=== PATIENT | male | born 1950 | race Caucasian/White ===

== ENCOUNTER 2021-11-21 08:26 | Emergency (ER) | payer MEDICARE, SELFPAY ==
[2021-11-21] VITALS (8 sets, daily range): BP systolic 108–132; BP diastolic 61–93; PULSE 50–120; RESP 20; TEMP 36.6–37.1; O2SAT 97–99
--- NOTE | ~2021-11-21 | XR_ITS ---
EXAMINATION: XR chest 1V portable DATE: 11/21/2021 09:33 INDICATION: Pedal edema. TECHNIQUE: A single frontal view of the chest was obtained. COMPARISON: None. FINDINGS: There is no pneumonia, pleural effusion, or pneumothorax. Cardiomegaly is noted. Median samina rnotomy wires and mediastinal surgical clips are seen, likely from prior coronary artery bypass graft ing. There are old healed left rib fractures. IMPRESSION: 1. Cardiomegaly. Reviewed, dictated and finalized at location A. IMPRESSION: 1. Cardiomegaly.
--- NOTE | ~2021-11-21 | US_ITS ---
EXAMINATION:US venous doppler LE BI INDICATION:Bilateral leg edema TECHNIQUE: Multiple grayscale, color flow and Doppler images of the right and left lower extremity de ep venous systems were obtained and reviewed. COMPARISON:No prior studies for comparison. FINDINGS: The common femoral, superficial femoral and popliteal veins demonstrate normal respiratory variation, augmentation and compressibility. Color flow is also seen within the posterior tibial, pe roneal, greater saphenous and profunda veins. IMPRESSION: 1: No lower extremity deep venous thrombosis. Reviewed, dictated and finalized at location A.
--- NOTE | 2021-11-21 08:42 | ED.GENADULT ---
HPI - General Adult General Chief complaint: Asthma Stated complaint: AMBULANCE History of Present Illness HPI narrative: The patient is a 71-year-old male with multiple comorbidities who has not received any medications for the last 2 months for any of his medical conditions. He does have hypertension, asthma, hyperlipidemia, coronary artery disease, status post coronary artery bypass grafting and aortic valve replacement (2017), status post coronary artery stenting, status post right carotid artery stenting, persistent atrial fibrillation. Vaccinated against COVID-19, 2 of 2 doses, no booster. He had been on albuterol, Dyazide, Xanax as needed, Toprol-XL, lisinopril, Advair twice daily, Lipitor, and aspirin as well as Eliquis. He has been off all his medications for the last 2 months since moving to this area. He last saw his physicians in [place] ([facility]) several months ago. He is brought in by EMS after falling at home. He also did fall 2 days ago. EMS noted that the house is not filthy. The patient was soaked in stool and his clothes were very crusty and smelly, and had not been washed for some time. He has not showered in 10 days per his report. He does have running water where he lives. His uses a cane. He moved to this area 2 months ago. The patient had complaints of mild dyspnea. EMS administered an albuterol treatment. He feels better now and back to normal. No chest pain or dyspnea. No rhinorrhea or nasal congestion. No fevers or chills or diaphoresis. No abdominal pain or nausea vomiting. He does have significant pedal edema up to the knees bilaterally which has been ongoing for several months, especially since he has been off his diuretic medications. No motor or sensory deficits. He has no pain after falling at home. No pain in the neck or back. No pain in the upper lower extremities. No abrasions or bruising. Related Data Home Medications Medication Instructions Recorded Confirmed albuterol sulfate 90 mcg/actuation 2 puff inhalation DIRECTED PRN 11/21/21 11/21/21 aerosol inhaler Shortness Of Breath Or Wheezing alprazolam 0.5 mg tablet 0.5 mg PO DIRECTED PRN Anxiety 11/21/21 11/21/21 apixaban 5 mg tablet (Eliquis) 5 mg PO BID 11/21/21 11/21/21 aspirin 81 mg capsule 81 mg PO DAILY 11/21/21 11/21/21 atorvastatin 20 mg tablet 80 mg PO DAILY 11/21/21 11/21/21 fluticasone propionate 115 1 inh inhalation DAILY 11/21/21 11/21/21 mcg-salmeterol 21 mcg/actuation HFA inhaler (Advair HFA) lisinopril 5 mg tablet 5 mg PO DAILY 11/21/21 11/21/21 metoprolol succinate 25 mg 50 mg PO BID 11/21/21 11/21/21 tablet,extended release 24 hr triamterene 37.5 1 cap PO DAILY 11/21/21 11/21/21 mg-hydrochlorothiazide 25 mg capsule Allergies Allergy/AdvReac Type Severity Reaction Status Date / Time No Known Allergies Allergy Verified 11/21/21 09:21 Most Recent Cardiac Tests: Chest X-Ray 11/21/21 Review of Systems Review of Systems: All systems reviewed & are unremarkable except as noted in HPI and below Constitutional: Constitutional: Reports no additional constitutional complaints, Denies anorexia, Denies body ache(s), Denies chills, Denies excessive sweating, Denies fatigue, Denies fever(s), Reports frequent falls, Denies headache(s), Denies malaise and Denies poor appetite Eyes: Eyes: Reports no additional eye complaints, Denies blurry vision, Denies change in vision, Denies irritation, Denies itchy eyes and Denies photophobia ENT: Reports system reviewed and no additional complaints, except as documented, Reports Normal hearing present, Denies change in voice, Denies dysphagia, Denies vertigo, Denies dizziness, Denies ear discharge, Denies headache(s), Denies hearing loss, Denies hoarseness, Denies nasal congestion, Denies neck pain, Denies sinus pressure, Denies sore throat and Denies throat swelling Cardiovascular: Cardiovascular: Reports no additional cardiovascular complaints, Denie
--- NOTE | 2021-11-21 09:04 | ECG_ITS ---
Measurements Intervals [place] Rate: 118 P: 226 AL: 140 QRS: 155 QRSD: 152 T: 5 QT: 362 QTc: 507 Interpretive Statements SINUS TACHYCARDIA RIGHT BUNDLE BRANCH BLOCK LEFT POSTERIOR FASCICULAR BLOCK ABNORMAL ECG NO PREVIOUS ECG AVAILABLE FOR COMPARISON Electronically Signed On 11-21-2021 15:52:38 CDT by Yamil Baez M.D.
[2021-11-21 09:37] LABS: Basophils Absolute Auto 0.03 K/mm3 (0.00-0.10); Basophils Percent Auto 0.5 % (0.0-1.0); Eosinophils Absolute Auto 0.13 K/mm3 (0.02-0.50); Hematocrit 49.2 % (37.0-46.0); Hemoglobin 15.5 g/dL (12.4-15.3); Immature Granulocyte Absolute 0.01 K/mm3 (0.00-0.00); Immature Granulocyte Percent A 0.2 % (0.0-0.0); Lymphocytes Absolute Auto 0.72 K/mm3 (1.10-4.50); Mean Corpuscular HGB Conc 31.5 g/dL (32.0-36.0); Mean Corpuscular Hemoglobin 30.3 pg (27.0-31.0); Mean Corpuscular Volume 96.3 fL (78.0-102.0); Mean Platelet Volume 12.8 fl (8.7-11.0); Monocytes Absolute Auto 0.53 K/mm3 (0.10-0.90); Monocytes Percent Auto 8.1 % (2.0-11.0); Neutrophils Absolute Auto 5.2 K/mm3 (1.7-7.2); Neutrophils Percent Auto 78.2 % (50.0-70.0); Platelet Count Result 139 K/mm3 (150-420); Red Blood Count 5.11 M/mm3 (4.70-6.10); Red Cell Distribution Width 13.6 % (11.6-14.4); White Blood Count 6.6 K/mm3 (4.8-10.8)
[2021-11-21 09:39] LABS: Add Urine Microscopic? YES; Appearance Urine Slightly Cloudy (Clear); Bilirubin Urine 1+ (Negative); Blood Urine Negative (Negative); Color Urine Dark Yellow (Yellow); Glucose Urine UA Negative (Negative); Ketones Urine Negative (Negative); Leukocyte Esterase Ur Negative LEU/UL (Negative); Nitrate Urine Negative (Negative); Protein Urine 2+ (Negative); Specific Grav Ur >= 1.030 (1.010-1.020)
[2021-11-21 09:44] LABS: Bacteria Urine Trace /hpf; RBC Urine 0-2 /hpf (0-2); Squamous Epithelial Cell Urine Rare /hpf (Few); WBC Urine 0-3 /hpf (0-3)
[2021-11-21] MEDS: METOPROLOL TARTRATE INJ 5 MG/5 ML VIAL IV PUSH (09:51)
[2021-11-21 09:53] LABS: INR 1.1; Partial Thromboplastin Time 26.9 SEC (23.90-30.70); Prothrombin Time 11.7 Seconds (9.50-12.10)
[2021-11-21] MEDS: FUROSEMIDE INJ 100 MG/10 ML VIAL 80 MG IV PUSH (09:54)
[2021-11-21] MEDS: MAGNESIUM SULF 2 GM/WATER 50ML 2 GM/50 ML BAG IVPB (09:54)
[2021-11-21 09:57] LABS: Lactic Acid Reflex 1.5 mmol/L (0.4-2.0)
[2021-11-21 09:59] LABS: Alanine Aminotransferase 50 U/L (16-63); Albumin Level 3.2 g/dL (3.4-5.0); Alkaline Phosphatase 148 U/L (46-116); Anion Gap 9 mmol/L (8-16); Aspartate Amino Transferase 37 U/L (15-37); Bilirubin,Total 0.8 mg/dL (0.00-1.00); Blood Urea Nitrogen 32 mg/dL (7-18); Calcium 8.9 mg/dL (8.5-10.1); Carbon Dioxide 27 mmol/L (21-32); Chloride 107 mmol/L (98-108); Estimated Glomerular Filt Rate 46; Ethanol < 3 mg/dL (0-6); Glucose 111 mg/dL (70-99); NT Pro B Type Natriuretic Pept 13653 pg/mL (0-125); Osmolality Calculated 303 mOsm/kg (285-295); Potassium 4.1 mmol/L (3.5-5.1); Sodium 143 mmol/L (136-145); Total Protein 6.4 g/dL (6.4-8.2)
[2021-11-21 10:10] LABS: Amphetamine Screen Urine Negative (Negative); Barbiturate Screen Urine Negative (Negative); Benzodiazepines Screen Urine Negative (Negative); Cannabinoid Screen Urine Negative (Negative); Cocaine Screen Urine Negative (Negative); Methadone Screen Urine Negative (Negative); Opiate Screen Urine Negative (Negative); Phencyclidine Screen Urine Negative (Negative)
[2021-11-21 10:14] LABS: Magnesium 1.9 mg/dL (1.8-2.4); Troponin I 141.7 ng/L (0.00-60.4)
[2021-11-21 10:39] LABS: Erythrocyte Sedimentation Rate 3 mm/hr (0-20)
[2021-11-21] MEDS: POTASSIUM BICARBONATE 25 MEQ TABEF PO (10:47)
[2021-11-21] MEDS: dilTIAZem 100 MG/100 ML 100 MG/100 ML BAG 10 MG IV CONT (10:48)
[2021-11-21] MEDS: ENOXAPARIN 100 MG/ML SYRINGE SUB-Q (10:48)
[2021-11-21] MEDS: dilTIAZem HCl INJ 25 MG/5 ML VIAL 10 MG IV PUSH (10:48)
[2021-11-21 11:12] LABS: SARS-CoV-2 RNA PCR Negative (Negative)
--- NOTE | 2021-11-21 11:40 | ECG_ITS ---
Measurements Intervals [place] Rate: 38 P: [place]: 0 QRS: 116 QRSD: 167 T: 178 QT: 489 QTc: 393 Interpretive Statements ATRIAL FLUTTER WITH SLOW VENTRICULAR RESPONSE RIGHT AXIS DEVIATION RIGHT BUNDLE BRANCH BLOCK MARKED T-WAVE ABNORMALITY, CONSIDER ANTEROLATERAL ISCHEMIA MODERATE T-WAVE ABNORMALITY, CONSIDER INFERIOR ISCHEMIA ABNORMAL ECG COMPARED TO ECG 11/21/2021 09:16:46 ATRIAL FLUTTER NOW PRESENT AND ANTEROLATERAL ST ABNORMALITIES MORE PRONOUNCED Electronically Signed On 11-21-2021 15:53:27 CDT by Yamil Baez M.D.
--- NOTE | 2021-11-21 12:51 | PC.NURSE ---
Parks Worker at [facility] called with bed update. Pt to be admitted to IMU [address] Rodriguez [phone] - Call for report
--- NOTE | 2021-11-21 13:33 | PC.NURSE ---
update to cb mo.
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
== END 2021-11-21 14:05 | disposition short-term general hospital (02) ==
PROVIDERS: Emergency Provider Emergency Medicine
DX: I48.92 Unspecified atrial flutter (principal); I21.4 Non-ST elevation (NSTEMI) myocardial infarction; R60.9 Edema, unspecified; I50.9 Heart failure, unspecified; Z91.81 History of falling; Z91.14 Patient's other noncompliance with medication regimen; R79.1 Abnormal coagulation profile; I10 Essential (primary) hypertension; E78.5 Hyperlipidemia, unspecified; I25.10 Atherosclerotic heart disease of native coronary artery without angina pectoris; Z20.822 Contact with and (suspected) exposure to COVID-19; Z79.899 Other long term (current) drug therapy
CPT/HCPCS: 36415; 71045; 80053; 80307; 81001; 83605; 83735; 83880; 84484; 85025; 85380; 85610; 85652; 85730; 86140; 87040; 93005; 93970; 96365; 96366; 96367; 96372; 96375; 99285; A9270; C9803; J1650; J1940; J3475; U0003; U0005

== ENCOUNTER 2021-11-21 14:51 | Inpatient (IN) | payer MEDICARE, SELFPAY ==
--- NOTE | 2021-11-21 | ECHO_ITS ---
Patient Info Name: Ti Yuen Age: 71 years : 1950 Gender: Male Ht: 74 in Wt: 237 lbs BSA: 2.39 m2 HR: 118 bpm BP: 126 / 74 mmHg Heart Rhythm: Atrial Flutter Technical Quality: Good Exam Date: 11/21/2021 4:29 PM Exam Location: [facility] Card Pulmonary Patient Status: Inpatient Admit Date: 11/21/2021 Staff Ordering Physician: Lisha Ram Director Of Nuclear Medicine: Stacy Moulton RDCS Attending Provider: Tatum Rodriguez DO Referring Physician: Leanna STONE; Exam Type: CA echo doppler color flow Study Info Indications I50.9 - Heart failure, unspecified Complete two-dimensional, color flow and Doppler transthoracic echocardiogram is performed with contrast to opacify the left ventricle and to improve the deliniation of the left ventricle endocardial borders. Summary 1. Four-chamber cardiac dilation. 2. Severe left ventricular systolic dysfunction. 3. Normal appearing and normally functioning aortic valve bioprosthesis. 4. Small amount of MR resulting from annular dilation. Left Ventricle Left ventricular chamber dimension is moderately enlarged. Left ventricular systolic function is severely reduced, estimated at 20-25%. The left ventricular diastolic function is indeterminate. Right Ventricle Right ventricular chamber dimension is moderately enlarged. Left Atria Left atrial chamber dimension is moderately enlarged. Right Atria Right atrial chamber dimension is moderately enlarged. Aortic Valve There is no bioprosthetic aortic valve stenosis. Pulmonic Valve The pulmonic valve is normal. There is trace pulmonic regurgitation. Mitral Valve The mitral valve has normal leaflets. There is mild mitral valve regurgitation. Tricuspid Valve The tricuspid valve leaflets are normal. There is mild tricuspid valve regurgitation. Pericardium/Pleural The pericardium appears normal. Aorta The aortic root size at the sinus of Valsalva is normal. Left Ventricular Outflow Tract Name Value Normal LVOT 2D LVOT Diameter 2.1 cm LVOT Doppler LVOT Peak Gradient 3 mmHg LVOT Mean Gradient 2 mmHg LVOT VTI 10 cm LVOT VTI/AV VTI Ratio 0.4 LVOT Stroke Volume 33 ml LVOT CO 11.5 l/min LVOT CI 4.8 l/min/m2 Pulmonic Valve Name Value Normal PV Doppler PV Peak Gradient 2 mmHg Mitral Valve Name Value Normal MV Doppler MV Decel [place] 489 cm/s2
--- NOTE | ~2021-11-21 | CT_ITS ---
EXAMINATION: CTA chest PE protocol DATE: 11/21/2021 17:36 INDICATION: Dyspnea. Elevated d-dimer. TECHNIQUE: Computed tomography (CT) pulmonary angiogram of the chest was performed with 100 mL Omnipa que-350 intravenous contrast. Additional 3D reconstructions utilizing coronal maximum intensity proje ction (MIP) were performed. Automated exposure control and iterative reconstruction technique were em ployed. The dose-length product was 568.70 mGy-cm. COMPARISON: None FINDINGS: Excellent contrast opacification of the pulmonary arteries. There is mild streak artifact from dense contrast in the superior vena cava and right atrium. Mild to moderate scattered respiratory motion ar tifact. Pelvis decreases sensitivity in the segmental and subsegmental pulmonary arteries at the lowe r lung zones and some of the smaller subsegmental pulmonary arteries in the mid to upper lung zones. No pulmonary embolism. Small right pleural effusion. Discoid atelectasis at the lingula. No pneumonia , pulmonary edema or left pleural effusion. Moderate cardiomegaly. Atherosclerotic coronary artery os sifications. Median sternotomy wires and aortic valve repair. Additional likely surgical clips along the heart suggesting coronary artery bypass grafting. Prominent right atrial enlargement and reflux o f contrast into the inferior vena cava and hepatic veins consistent with tricuspid regurgitation. No pericardial effusion. Thoracic aorta is normal in caliber. No pathologically enlarged thoracic lympha denopathy. Small amount of perihepatic and perisplenic ascites in the upper abdomen. Mild thoracic sp ondylosis. IMPRESSION: 1. No pulmonary embolism identified although evaluation is limited in the subsegmental basilar segmen yuliana pulmonary arteries due to primarily to respiratory motion. 2. Small right pleural effusion. 3. Moderate cardiomegaly including prominent right atrial enlargement suggesting tricuspid regurgitat ion. 4. Small amount of ascites in the upper abdomen. Reviewed, dictated and finalized at location A. IMPRESSION: 1. No pulmonary embolism identified although evaluation is limited in the subse gmental basilar segmental pulmonary arteries due to primarily to respiratory mo tion. 2. Small right pleural effusion. 3. Moderate cardiomegaly including prominent right atrial enlargement suggestin g tricuspid regurgitation. 4. Small amount of ascites in the upper abdomen.
--- NOTE | 2021-11-21 14:51 | ADMGEN ---
This patient, Ti Yuen, was admitted to IMU Room 211-01. Patient/family oriented to hospital policies and general routines including ID bracelet, bed and alarms, visiting hours, pain management, procedures, bathroom and other care routines, personal items, smoking policy, room service/diet, and visiting hours. Information on how to activate the Rapid Response Team has been discussed. Patient/Family are encouraged to report perceived risks to care and to ask questions if they do not understand what they are told or what they should do.
[2021-11-21 15:00] VITALS: BP 126/74; PULSE 93; RESP 20; TEMP 36.2; O2SAT 100; BMI 30.4
--- NOTE | 2021-11-21 15:51 | PM.IMHP ---
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 These medications include his Eliquis, Xanax, Toprol-XL, Albuterol, dyazide, lisinopril, advair, lipitor and ASA. He is newly moved to [place] from [place] and reports that he last saw his PCP there a few months back. In addition, the pt. states that after moving to [place], his SSI checks continued to go to his bank in [place], so he could not afford to buy his medications. He has no means of transportation and states he moved here under the pretense that his son was going to help him get around and drive him around and help him get set up with a physician here and hasn't done so. As a result, he walks everywhere and he endorses that in order to get to the dollar store he has to walk across a large field and stumbles and falls frequently. Today he fell going down some stairs and landed on his knees, but he could not get up in his apartment which prompted his to call 911. Upon entry into the home, the Paramedics reportedly found him covered in dried stool, in very dirty clothes and living conditions. The pt. admitted that he had not bathed in 10 days, although that is unclear why. He reports he does have running water and soap. He was found to have an elevated Heart rate and was wheezing. After nebulizer treatment, he was improved. At the ER he was found to be in Atrial Fibrillation with RVR in the 120s, and his workup at [facility] was also significant for an elevated troponin and dimer. However, a CTA was not performed at [facility] as it appeared he may have an MITA with Cr of 1.49 and BUN of 32. But the pt's GFR is 46. He can have contrast at this GFR. The pt. was administered Lasix and Magnesium at the ER and transferred here in light of his elevated trop. At the time of my exam, the pt denies any CP, dyspnea at rest, N/V/D/urinary complaints, headache, dizziness, or lightheadedness. No abdominal pain. He reports that he has occasional NAVA as he is walking across the field to the store. He has also noted that his legs have been swelling as of recent. He lives in an apartment with his , does not drive as he does not have a car and does not currently have financial means for his medications. No cardiac history is in our EMR for this patient, so ECHO is ordered. We will trend troponin's and restart home meds. We will obtain Cardiology consult, and do CTA of chest. [id number]: 4 Review of Systems Review of Systems: All systems reviewed & are unremarkable except as noted in HPI and below PMFSH Past Medical History Medical History Asthma Atrial fibrillation CAD (coronary artery disease) Carotid artery stenosis Frequent falls Heart failure Hyperlipidemia Hypertension Myocardial infarction Traumatic amputation of multiple toes Surgical History Surgical History Aortic valve replaced Hx of CABG Family History Family History Sibling Myocardial infarct Sibling Myocardial infarct Mother Liver failure Father Emphysema lung Social History Social History Smoking status: Never smoker Alcohol intake: current Drinks per week: 1 Substance use: never Spiritual care concerns: No Meds Home Medications and Allergies Home Medications Medication Instructions Recorded Confirmed Type albuterol sulfate 90 mcg/actuation 2 puff inhalation DIRECTED PRN
[2021-11-21 16:00] VITALS: BP 132/73; PULSE 118; PULSE 119; RESP 24; TEMP 36.1; O2SAT 100
--- NOTE | 2021-11-21 16:12 | ECG_ITS ---
Measurements Intervals [place] Rate: 118 P: WV: 0 QRS: 120 QRSD: 161 T: 0 QT: 386 QTc: 542 Interpretive Statements ATRIAL FLUTTER/TACHYCARDIA WITH RAPID VENTRICULAR RESPONSE INDETERMINATE AXIS RIGHT BUNDLE BRANCH BLOCK [120+ ms QRS DURATION, UPRIGHT V1, 40+ ms S IN I/aVL/V4/V5/V6] COMPARED TO ECG 11/21/2021 11:43:08 VENTRICULAR RESPONSE TO ATRIAL FLUTTER HAS ACCELERATE Electronically Signed On 11-21-2021 16:36:57 CDT by Nader Hayden M.D.
[2021-11-21 16:19] LABS: Basophils Percent Auto 0.6 % (0.2-1.2); Eosinophils Absolute Auto 0.1 K/mm3 (0-0.3); Eosinophils Percent Auto 1.2 % (0-4.4); Hematocrit 46.3 % (42.0-52.0); Hemoglobin 14.2 g/dL (14.0-18.0); Immature Granulocyte Absolute 0.02 K/mm3 (0.00-0.031); Immature Granulocyte Percent A 0.3 % (0-0.5); Lymphocytes Absolute Auto 0.66 K/mm3 (0.9-3.2); Lymphocytes Percent Auto 9.8 % (18.3-44.2); Mean Corpuscular HGB Conc 30.7 g/dl (32-36); Mean Corpuscular Hemoglobin 29.8 pg (26-34); Mean Corpuscular Volume 97.3 fl (80-100); Mean Platelet Volume 12.7 fl (7.4-10.4); Monocytes Absolute Auto 0.6 K/mm3 (0.1-0.6); Monocytes Percent Auto 8.7 % (2.6-8.5); Neutrophils Absolute Auto 5.4 K/mm3 (1.3-6.7); Neutrophils Percent Auto 79.4 % (45.5-73.1); Platelet Count Result 140 k/mm3 (150-375); Red Blood Count 4.76 M/mm3 (4.6-6.20); Red Cell Distribution Width 14.1 % (11.5-14.5); White Blood Count 6.8 K/mm3 (4.5-10.0)
[2021-11-21 16:32] LABS: Partial Thromboplastin Time 34.6 SECONDS (22.3-36.8)
[2021-11-21 16:33] LABS: INR 1.2; Prothrombin Time 14.7 Seconds (11.1-14.7)
[2021-11-21 16:37] LABS: Alanine Aminotransferase 36 U/L (6-50); Albumin Level 3.3 g/dL (3.5-5.1); Alkaline Phosphatase 127 U/L (38-126); Anion Gap 7 mmol/L (8-16); Aspartate Amino Transferase 36 U/L (17-59); Bilirubin,Total 0.7 mg/dL (0.2-1.3); Blood Urea Nitrogen 31 mg/dL (9-20); Calcium 8.7 mg/dL (8.4-10.2); Carbon Dioxide 28 mmol/L (22-30); Chloride 106 mmol/L (98-107); Estimated CRCL calculation 59 ml/min; Estimated Glomerular Filt Rate 54; Glucose 93 mg/dL (65-110); Magnesium 2.1 mg/dL (1.6-2.3); Potassium 3.8 mmol/L (3.4-5.0)
[2021-11-21 16:39] LABS: Sodium 141 mmol/L (137-145)
[2021-11-21 16:40] LABS: Troponin I 0.117 ng/mL (0.000-0.034)
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
[2021-11-21 18:57] VITALS: PULSE 117
[2021-11-21] MEDS: FUROSEMIDE INJ 40 MG/4 ML VIAL IV PUSH (18:57)
[2021-11-21] MEDS: METOPROLOL SUCCINATE EXT REL 50 MG TABCR PO (18:57)
[2021-11-21] MEDS: APIXABAN 5 MG TABLET PO (18:57)
[2021-11-21 19:54] LABS: Troponin I 0.122 ng/mL (0.000-0.034)
[2021-11-21 20:00] VITALS: BP 116/78; PULSE 118; RESP 22; TEMP 36.9; O2SAT 100
--- NOTE | 2021-11-21 20:03 | PC.NURSE ---
Patient arrived with cardizem gtt at 5 mLs/hr. Received orders to continue drip until PO metoprolol is given. PO metoprolol given at 185, cardizem dc'd at 1857 and patient saline locked at this time.
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
[2021-11-21 21:57] VITALS: PULSE 118
[2021-11-21] MEDS: dilTIAZem 100 MG/100 ML 100 MG/100 ML BAG IV CONT (21:57)
[2021-11-21 22:00] VITALS: PULSE 118
[2021-11-21 22:31] LABS: Troponin I 0.142 ng/mL (0.000-0.034)
[2021-11-22] VITALS (14 sets, daily range): BP systolic 97–120; BP diastolic 57–82; PULSE 82–117; RESP 18–22; TEMP 35.8–36.9; O2SAT 94–100
[2021-11-22 05:02] LABS: Basophils Percent Auto 0.6 % (0.2-1.2); Eosinophils Absolute Auto 0.2 K/mm3 (0-0.3); Hematocrit 44.5 % (42.0-52.0); Hemoglobin 13.8 g/dL (14.0-18.0); Immature Granulocyte Absolute 0.02 K/mm3 (0.00-0.031); Immature Granulocyte Percent A 0.4 % (0-0.5); Lymphocytes Absolute Auto 0.86 K/mm3 (0.9-3.2); Lymphocytes Percent Auto 15.9 % (18.3-44.2); Mean Corpuscular Hemoglobin 29.7 pg (26-34); Mean Corpuscular Volume 95.7 fl (80-100); Monocytes Absolute Auto 0.6 K/mm3 (0.1-0.6); Monocytes Percent Auto 10.7 % (2.6-8.5); Neutrophils Absolute Auto 3.8 K/mm3 (1.3-6.7); Neutrophils Percent Auto 69.4 % (45.5-73.1); Platelet Count Result 128 k/mm3 (150-375); Red Blood Count 4.65 M/mm3 (4.6-6.20); Red Cell Distribution Width 14.2 % (11.5-14.5); White Blood Count 5.4 K/mm3 (4.5-10.0)
[2021-11-22 05:19] LABS: Alanine Aminotransferase 33 U/L (6-50); Albumin Level 3.1 g/dL (3.5-5.1); Alkaline Phosphatase 112 U/L (38-126); Anion Gap 7 mmol/L (8-16); Aspartate Amino Transferase 33 U/L (17-59); Bilirubin,Total 0.7 mg/dL (0.2-1.3); Blood Urea Nitrogen 31 mg/dL (9-20); Calcium 8.1 mg/dL (8.4-10.2); Carbon Dioxide 30 mmol/L (22-30); Chloride 104 mmol/L (98-107); Estimated CRCL calculation 55 ml/min; Estimated Glomerular Filt Rate 50; Glucose 109 mg/dL (65-110); Potassium 3.8 mmol/L (3.4-5.0); Sodium 141 mmol/L (137-145)
--- NOTE | 2021-11-22 08:25 | PM.PNCARD ---
Progress Note: A&P Assessment and Plan (1) Ischemic cardiomyopathy: Code(s): I25.5 - Ischemic cardiomyopathy Status: Acute (2) Atrial flutter: Code(s): I48.92 - Unspecified atrial flutter Status: Acute (3) H/O aortic valve replacement: Code(s): Z95.2 - Presence of prosthetic heart valve Status: Acute Plan 71-year-old man with ischemic cardiomyopathy aortic valve replacement and atrial flutter of unknown chronicity. Previous records indicate AFib with RVR was present the last time his internists saw him also with chronic right bundle branch block. Echocardiogram done yesterday on the positive side demonstrates a very nicely functioning aortic valve bioprosthesis. On the negative side demonstrates very poor left ventricular systolic function. I will discontinue his IV diltiazem this morning. Advance his metoprolol to his previous dosage of 100 mg daily and transition him from lisinopril to Entresto. We should not have to wait for couple of days to start the Entresto since he has not had the lisinopril for about 2 months. He has not yet taken this morning's dose. Nader Hayden MD [facility] Subjective Date/time seen: Date of service: 11/22/21 08:25 Interval history: Follow-up visit in this 71-year-old man with: Ischemic heart disease with previous surgical revascularization as well as previous bioprosthetic aortic valve replacement. Patient admitted to the hospital with shortness of breath found to be in atrial flutter with RVR. Review of previous records indicates this may be his chronic rhythm. He has been noncompliant with medication and has not had any of his medication for at least a couple of months or so prior to coming in the hospital. This morning he feels well. Echocardiogram results reviewed with the patient. Exam Const: General: comfortable and no acute distress HENMT: Mouth: Yes moist mucous membranes Eyes: Sclera: sclerae normal Neck: Neck: supple and no JVD Resp: Effort & Inspection: normal respiratory effort Auscultation: clear to auscultation bilaterally Cardio: Rhythm: abnormal rhythm irregularly irregular Other: PMI laterally displaced GI: GI Palp: Yes Soft to palpation Auscultation: normal bowel sounds Skin: General skin exam: normal color Neuro: Other: Normal cognition Extrem: Other: Edema improved Objective Data Vital Signs Vital Signs: Vital Signs - 24 hr 11/21/21 15:00 11/21/21 16:00 11/21/21 16:00 Temperature 36.2 C L 36.1 C L Pulse Rate 93 119 H 118 H Respiratory Rate 20 24 H Blood Pressure 126/74 132/73 Pulse Oximetry 100 100 Oxygen Delivery 11/21/21 18:57 11/21/21 16:00 11/21/21 20:00 Temperature 36.9 C Pulse Rate 117 H 118 H Respiratory Rate 22 H Blood Pressure 116/78 Pulse Oximetry 100 Oxygen Delivery Room Air 11/21/21 20:00 11/21/21 20:00 11/21/21 21:57 Temperature Pulse Rate 118 H 118 H Respiratory Rate Blood Pressure Pulse Oximetry 100 Oxygen Delivery Room Air 11/21/21 22:00 11/22/21 00:00 11/22/21 00:00 Temperature 36.9 C Pulse Rate 118 H 117 H 117 H Respiratory Rate 18 Blood Pressure 110/80 Pulse Oximetry 100 Oxygen Delivery 11/22/21 00:00 11/22/21 02:00 11/22/21 04:00 Temperature 36.3 C L Pulse Rate 116 H 114 H Respiratory Rate 20 Blood Pressure 109/80 Pulse Oximetry 100 100 Oxygen Delivery Room Air 11/22/21 04:00 11/22/21 04:00 11/22/21 06:00 Temperature Pulse Rate 115 H 116 H Respiratory Rate Blood Pressure Pulse Oximetry 100 Oxygen Delivery Room Air 11/22/21 08:11 Temperature 36.0 C L Pulse Rate 116 H Respiratory Rate 20 Blood Pressure 111/75 Pulse Oximetry 98 Oxygen Delivery Intake/Output Intake/Output: Intake & Output 11/19/21 11/20/21 11/21/21 11/22/21 23:59 23:59 23:59 23:59 Intake Total 360 620 Output Total 525 1400 Balance -169 -859 Meds/Results Medications:
[2021-11-22] MEDS: ATORVASTATIN 40 MG TABLET 80 MG PO (09:25)
[2021-11-22] MEDS: METOPROLOL SUCCINATE EXT REL 50 MG TABCR PO ×2 (09:25→21:06)
[2021-11-22] MEDS: ASPIRIN 81 MG CHEWABLE TABLET PO (09:25)
[2021-11-22] MEDS: FUROSEMIDE INJ 40 MG/4 ML VIAL IV PUSH ×2 (09:25→17:48)
[2021-11-22] MEDS: TRIAMTERENE 37.5 MG/HCTZ 25 MG (MAXZIDE) TABLET 1 TAB PO (09:25)
[2021-11-22] MEDS: APIXABAN 5 MG TABLET PO ×2 (09:25→17:49)
[2021-11-22] MEDS: SACUBITRIL/VALSARTAN 24-26 MG TABLET 1 TAB PO ×2 (09:25→21:07)
[2021-11-22] MEDS: FLUTICASONE/SALMETEROL 115-21 MCG INHALER 1 PUFF INHALATION (10:20)
--- NOTE | 2021-11-22 13:16 | PM.IMPN ---
Progress Note: A&P Assessment and Plan (1) Atrial flutter with rapid ventricular response: Code(s): I48.92 - Unspecified atrial flutter Status: Inactive Assessment and Plan: - Cardizem discontinued and pt.s dose of Metoprolol has been increased to 100 mg op daily. - Cardiology consulted and changes were made to Metoprolol dose and Entresto was initiated. - Telemetry - Troponins have trended to flat. - heart Healthy diet (2) Congestive heart failure: Code(s): I50.9 - Heart failure, unspecified Status: Inactive Assessment and Plan: - No historical data in EMR. - BNP grossly elevated >13K, and matches respiratory and Physical exam. - ECHO performed and demonstrates severe LVSD with EF of 20-25% and indeterminate Diastolic function. - Telemetry continued - Continue Lasix 40 mg IVP BID - Accurate I&O - Daily weight, interval change is stable. It was 107.8 yesterday and is 107.4 today with diuresis. (3) Frequent falls: Code(s): R29.6 - Repeated falls Status: Inactive Assessment and Plan: - Fall precautions - PT and OT eval. (4) Noncompliance with medication regimen: Code(s): Z91.14 - Patient's other noncompliance with medication regimen Status: Inactive Assessment and Plan: - Care Coordination consulted for discharge planning and poor living conditions. - [facility] called Department of aging. (5) Clothing disheveled: Code(s): R46.89 - Other symptoms and signs involving appearance and behavior Status: Inactive Assessment and Plan: - See #4. (6) D-dimer, elevated: Code(s): R79.89 - Other specified abnormal findings of blood chemistry Status: Inactive Assessment and Plan: - CTA stat - Received Lovenox 1 mg/kg at [facility]. - Restarted on Eliquis here. (7) Elevated troponin: Code(s): R77.8 - Other specified abnormalities of plasma proteins Status: Acute Assessment and Plan: - Suspect demand ischemia from likely heart failure exacerbation. - Trend troponins - EKG's as needed Time Spent With Patient Time with patient: 15 - 25 minutes Subjective Date/time seen: 11/22/21 0910 This patient was examined at the bedside in interval assessment after being transferred to our facility for A-fib/flutter with RVR after not being able to take his medications for the past two months. He has been treated on a Diltiazem drip overnight and he has also been evaluated by Cardiology. Changes are being made to his medication regimen and he will be followed up by our Cardiology service as outpatient when he is stable. In addition his Metoprolol is advanced to 100 mg daily and his Lisinopril is transitioned to Entresto. He denies any CP, dyspnea, N/V/D, headache, lightheadedness or dizziness at this time. I have definite concerns about this patient and his compliance with therapy in the setting that he has no money, PCP, transportation available to him unless his son Ti is willing to help him out. I spoke personally with Ti on the phone and he is agreeable to helping his father with Transportation, with setting up of PCP appointment in [place] and also with obtaining his medications. Review of Systems Review of Systems: All systems reviewed & are unremarkable except as noted in HPI and below Exam Narrative: Very poorly kempt elderly male gentleman lying supine in bed at this time. He does not appear to be in any acute distress. Const: General: comfortable and no acute distress Other: Dirt noted under fingernails. HENMT: General nose exam: Normal nares present and no epistaxis Mouth: Yes moist mucous membranes Eyes: General: appearance normal, both eyes and all related structures Sclera: sclerae normal Pupils: Equal, round and reactive pupils present EOM: EOMs intact bilaterally Neck: Neck: supple and no JVD Thyroid: thyroid normal Lymphatic: lymphadenopathy not noted Chest: Other: Not tender
[2021-11-23] VITALS (11 sets, daily range): BP systolic 104–124; BP diastolic 68–90; PULSE 54–114; RESP 16–24; TEMP 36.1–36.4; O2SAT 95–100
--- NOTE | 2021-11-23 03:27 | PC.NURSE ---
This patient, Ti Yuen, was transferred to [facility] on 11/23/21 at 0327. Personal belongings sent with patient. Report given to Angélica LONGORIA. Appropriate documentation sent with patient.
--- NOTE | 2021-11-23 03:39 | PC.NURSE ---
Pt. received from IMU via bed at 0320. Pt. oriented to unit policies and procedures.
[2021-11-23 06:29] LABS: Basophils Absolute Auto 0.1 K/mm3 (0.0-0.1); Basophils Percent Auto 0.9 % (0.2-1.2); Eosinophils Absolute Auto 0.2 K/mm3 (0-0.3); Eosinophils Percent Auto 3.5 % (0-4.4); Hematocrit 46.4 % (42.0-52.0); Hemoglobin 14.4 g/dL (14.0-18.0); Immature Granulocyte Absolute 0.02 K/mm3 (0.00-0.031); Immature Granulocyte Percent A 0.4 % (0-0.5); Lymphocytes Absolute Auto 1.03 K/mm3 (0.9-3.2); Lymphocytes Percent Auto 18.8 % (18.3-44.2); Mean Corpuscular Hemoglobin 30.1 pg (26-34); Mean Corpuscular Volume 97.1 fl (80-100); Mean Platelet Volume 12.6 fl (7.4-10.4); Monocytes Absolute Auto 0.6 K/mm3 (0.1-0.6); Monocytes Percent Auto 10.8 % (2.6-8.5); Neutrophils Absolute Auto 3.6 K/mm3 (1.3-6.7); Neutrophils Percent Auto 65.6 % (45.5-73.1); Platelet Count Result 145 k/mm3 (150-375); Red Blood Count 4.78 M/mm3 (4.6-6.20); Red Cell Distribution Width 14.1 % (11.5-14.5); White Blood Count 5.5 K/mm3 (4.5-10.0)
[2021-11-23 06:41] LABS: Alanine Aminotransferase 34 U/L (6-50); Albumin Level 3.1 g/dL (3.5-5.1); Alkaline Phosphatase 126 U/L (38-126); Anion Gap 5 mmol/L (8-16); Aspartate Amino Transferase 33 U/L (17-59); Bilirubin,Total 0.6 mg/dL (0.2-1.3); Blood Urea Nitrogen 32 mg/dL (9-20); Calcium 8.4 mg/dL (8.4-10.2); Carbon Dioxide 32 mmol/L (22-30); Chloride 100 mmol/L (98-107); Estimated CRCL calculation 49 ml/min; Estimated Glomerular Filt Rate 50; Glucose 98 mg/dL (65-110); Magnesium 1.9 mg/dL (1.6-2.3); Potassium 3.8 mmol/L (3.4-5.0); Sodium 137 mmol/L (137-145)
[2021-11-23] MEDS: FLUTICASONE/SALMETEROL 115-21 MCG INHALER 1 PUFF INHALATION (09:27)
[2021-11-23] MEDS: SACUBITRIL/VALSARTAN 24-26 MG TABLET 1 TAB PO ×2 (09:37→20:32)
[2021-11-23] MEDS: METOPROLOL SUCCINATE EXT REL 50 MG TABCR PO ×2 (09:37→20:32)
--- NOTE | 2021-11-23 09:37 | PM.PNCARD ---
Progress Note: A&P Assessment and Plan (1) H/O aortic valve replacement: Code(s): Z95.2 - Presence of prosthetic heart valve Status: Acute (2) Atrial flutter: Code(s): I48.92 - Unspecified atrial flutter Status: Acute (3) Ischemic cardiomyopathy: Code(s): I25.5 - Ischemic cardiomyopathy Status: Acute Plan 71-year-old man with complex situation appears to have significant ischemic cardiomyopathy, normally functioning aortic valve bioprosthesis and likely chronic atrial flutter. He is on an appropriate medical regimen at this time. Because of his low ejection fraction I did transition him from lisinopril to Entresto. He has a reasonably controlled heart rate and of course is expected to be somewhat tachycardic because of his low ejection fraction. Will plan on offering him follow-up at our office after discharge from this hospitalization. He lives up in [facility]. Could also follow with a physician closer to that area([place]) should he choose to do so. Nader Hayden MD [facility] Subjective Date/time seen: Date of service: 11/23/21 09:37 Interval history: Follow-up visit in this 71-year-old man with: Reported history of coronary artery disease, aortic valve replacement, atrial flutter admitted to this hospital in a very poor state following falling in being found in his own excrement in his residence. Apparently moved to this area from [place] but had not had any medication for at least a couple of months. Records from previous care are not available. Evaluation here demonstrates normally functioning aortic valve bioprosthesis, severe LV systolic dysfunction and atrial flutter. 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 Exam Const: General: comfortable and no acute distress Other: Tall elderly man to comfortable cooperative no distress HENMT: Mouth: Yes moist mucous membranes Eyes: Sclera: sclerae normal Neck: Neck: supple and no JVD Other: Carotid pulses are intact bilaterally Resp: Effort & Inspection: normal respiratory effort Other: Breath sounds are essentially clear somewhat diminished bilaterally Cardio: Rhythm: abnormal rhythm irregularly irregular Other: Soft systolic murmur at the base no radiation GI: GI Palp: Yes Soft to palpation Auscultation: normal bowel sounds Skin: General skin exam: normal color Extrem: Other: Modest bipedal edema Objective Data Vital Signs Vital Signs: Vital Signs - 24 hr 11/22/21 11:59 11/22/21 12:00 11/22/21 16:41 Temperature 36.2 C L 35.8 C L Pulse Rate 82 94 104 H Respiratory Rate 20 22 H Blood Pressure 99/57 L 97/77 L Pulse Oximetry 94 99 Oxygen Delivery 11/22/21 16:00 11/22/21 20:00 11/22/21 21:06 Temperature 36.3 C L Pulse Rate 100 115 H 116 H Respiratory Rate 22 H Blood Pressure 120/82 Pulse Oximetry 97 Oxygen Delivery 11/22/21 20:00 11/22/21 20:00 11/22/21 23:33 Temperature 36.0 C L Pulse Rate 115 H 114 H Respiratory Rate 20 Blood Pressure 108/79 Pulse Oximetry 97 96 Oxygen Delivery Room Air 11/23/21 00:00 11/23/21 03:40 11/23/21 03:41 Temperature 36.4 C L Pulse Rate 114 H 112 H Respiratory Rate 20 Blood Pressure 110/90 Pulse Oximetry 100 Oxygen Delivery Room Air 11/23/21 04:00 11/23/21 09:28 Temperature Pulse Rate 112 H Respiratory Rate Blood Pressure Pulse Oximetry 98 Oxygen Delivery Room Air Intake/Output Intake/Output: Intake & Output 11/20/21 11/21/21 11/22/21 11/23/21 23:59 23:59 23:59 23:59 Intake Total 360 1820 240 Output Total 525 7629 125 [facility] -461 -1434 115 Meds/Results Medications: Active Medications Generic Name Dose Route Start Last Admin Trade Name Reji
[2021-11-23] MEDS: ASPIRIN 81 MG CHEWABLE TABLET PO (09:38)
[2021-11-23] MEDS: APIXABAN 5 MG TABLET PO ×2 (09:38→17:35)
[2021-11-23] MEDS: TRIAMTERENE 37.5 MG/HCTZ 25 MG (MAXZIDE) TABLET 1 TAB PO (09:38)
[2021-11-23] MEDS: FUROSEMIDE INJ 40 MG/4 ML VIAL IV PUSH ×2 (09:38→17:35)
[2021-11-23] MEDS: ATORVASTATIN 40 MG TABLET 80 MG PO (09:38)
--- NOTE | 2021-11-23 11:15 | PCPTNOTE ---
attempted PT treatment ~ 1100, pt reports tired--just got back to bed from sitting up in the chair, had OT this morning and walked to bathroom with nursing; did not want PT treatment at this time; reinstructed on safety and call nursing for OOB to bathroom.
[2021-11-23] MEDS: ONDANSETRON INJ 4 MG/2 ML VIAL IV PUSH (12:12)
--- NOTE | 2021-11-23 14:00 | WPDPN ---
Progress Note: A&P Assessment and Plan (1) H/O aortic valve replacement: Code(s): Z95.2 - Presence of prosthetic heart valve Status: Acute (2) Atrial flutter: Code(s): I48.92 - Unspecified atrial flutter Status: Acute Assessment and Plan: Cardiology consulted Continue Entresto Continue telemetry Repeat troponin (3) Ischemic cardiomyopathy: Code(s): I25.5 - Ischemic cardiomyopathy Status: Acute (4) Elevated troponin: Code(s): R77.8 - Other specified abnormalities of plasma proteins Status: Acute Assessment and Plan: Trop 0.122>0.142 Cardiology consulted refer to cardiology note (5) Non-compliance: Code(s): Z91.19 - Patient's noncompliance with other medical treatment and regimen Status: Acute Assessment and Plan: Care Coordination consulted for discharge planning and poor living conditions. [facility] called Department of aging. Subjective Date/time seen: 11/23/21 14:00 Interval history: Patient denies any chest pains at the time patient that he had a difficult time sleeping overnight he was able to tolerate all his meals. He also has excessive lower extremity edema patient notes that it has improved since admission. Patient denies any shortness for breath, chest pain, dizziness vertigo, diarrhea constipation, nausea vomiting. Review of Systems Review of Systems: Review of Systems General: Reports: No Symptoms HEENT: Reports: No Symptoms Respiratory: Reports: No Symptoms Cardiology: Reports: No Symptoms Gastrointestinal: Reports: No Symptoms Genitourinary: Reports: No Symptoms Neurology: Reports: No Symptoms Objective Data Vital Signs Vital Signs: Vital Signs - 24 hr 11/22/21 16:41 11/22/21 16:00 11/22/21 20:00 Temperature 96.4 F L 97.4 F L Pulse Rate 104 H 100 115 H Respiratory Rate 22 H 22 H Blood Pressure 97/77 L 120/82 Pulse Oximetry 99 97 Oxygen Delivery 11/22/21 21:06 11/22/21 20:00 11/22/21 20:00 Temperature Pulse Rate 116 H 115 H Respiratory Rate Blood Pressure Pulse Oximetry 97 Oxygen Delivery Room Air 11/22/21 23:33 11/23/21 00:00 11/23/21 03:40 Temperature 96.8 F L Pulse Rate 114 H 114 H Respiratory Rate 20 Blood Pressure 108/79 Pulse Oximetry 96 Oxygen Delivery Room Air 11/23/21 03:41 11/23/21 04:00 11/23/21 09:28 Temperature 97.5 F L Pulse Rate 112 H 112 H Respiratory Rate 20 Blood Pressure 110/90 Pulse Oximetry 100 98 Oxygen Delivery Room Air 11/23/21 09:37 11/23/21 12:00 11/23/21 08:45 Temperature Pulse Rate 114 H 91 Respiratory Rate Blood Pressure Pulse Oximetry Oxygen Delivery Room Air Intake/Output Intake/Output: Intake & Output 11/20/21 11/21/21 11/22/21 11/23/21 23:59 23:59 23:59 23:59 Intake Total 360 1820 580 Output Total 525 3251 125 [facility] -141 -3259 455 Meds/Results Medications: Active Medications Generic Name Dose Route Start Last Admin Trade Name Freq PRN Reason Stop Dose Admin Acetaminophen 650 mg 11/21/21 15:26 Acetaminophen 325 Mg Tablet PO Q4H PRN Mild Pain (1-3) or Fever Albuterol 2 puff 11/21/21 16:17 Albuterol Sulfate (*Sp) Aerosol 1 Puff INHALATION Q6H PRN Shortness Of Breath Or Wheezing Alprazolam 0.5 mg 11/21/21 16:17 Alprazolam (*Crx) 0.5 Mg Tablet PO BID PRN Anxiety Apixaban 5 mg 11/21/21 17:00 11/23/21 09:38 Apixaban 5 Mg Tablet PO 5 mg BID SARAH Administration Aspirin 81 mg 11/22/21 09:00 11/23/21 09:38 Aspirin 81 Mg Chewable Tablet PO 81 mg DAILY SARAH Administration Atorvastatin Calcium 80 mg 11/22/21 09:00 11/23/21 09:38 Atorvastatin 40 Mg Tablet PO 80 mg DAILY SARAH Administration Furosemide 40 mg 11/21/21 17:00 11/23/21 09:38 Furosemide Inj 40 Mg/4 Ml Vial IV PUSH 40 mg BID SARAH Administration Metoprolol Succinate 50 mg 11/22/21 09:00 11/23/21 09
[2021-11-23] MEDS: ALBUTEROL SULFATE (*SP) AEROSOL 1 PUFF 2 PUFF INHALATION (23:50)
[2021-11-24] VITALS (7 sets, daily range): BP systolic 105–114; BP diastolic 76–95; PULSE 78–111; RESP 18–20; TEMP 36.2–36.4; O2SAT 95–98
[2021-11-24 06:44] LABS: Hematocrit 46.7 % (42.0-52.0); Hemoglobin 14.7 g/dL (14.0-18.0); Mean Corpuscular HGB Conc 31.5 g/dl (32-36); Mean Corpuscular Hemoglobin 29.9 pg (26-34); Mean Corpuscular Volume 95.1 fl (80-100); Mean Platelet Volume 12.7 fl (7.4-10.4); Platelet Count Result 151 k/mm3 (150-375); Red Blood Count 4.91 M/mm3 (4.6-6.20); Red Cell Distribution Width 14.3 % (11.5-14.5); White Blood Count 6.3 K/mm3 (4.5-10.0)
[2021-11-24 06:56] LABS: Alanine Aminotransferase 38 U/L (6-50); Albumin Level 3.1 g/dL (3.5-5.1); Alkaline Phosphatase 147 U/L (38-126); Anion Gap 7 mmol/L (8-16); Aspartate Amino Transferase 46 U/L (17-59); Bilirubin,Total 0.5 mg/dL (0.2-1.3); Blood Urea Nitrogen 37 mg/dL (9-20); Calcium 8.3 mg/dL (8.4-10.2); Carbon Dioxide 32 mmol/L (22-30); Chloride 97 mmol/L (98-107); Estimated CRCL calculation 41 ml/min; Estimated Glomerular Filt Rate 40; Glucose 117 mg/dL (65-110); Sodium 136 mmol/L (137-145)
[2021-11-24] MEDS: FLUTICASONE/SALMETEROL 115-21 MCG INHALER 1 PUFF INHALATION (09:22)
[2021-11-24] MEDS: TRIAMTERENE 37.5 MG/HCTZ 25 MG (MAXZIDE) TABLET 1 TAB PO (10:02)
[2021-11-24] MEDS: ATORVASTATIN 40 MG TABLET 80 MG PO (10:02)
[2021-11-24] MEDS: METOPROLOL SUCCINATE EXT REL 50 MG TABCR PO (10:02)
[2021-11-24] MEDS: APIXABAN 5 MG TABLET PO ×2 (10:02→16:52)
[2021-11-24] MEDS: ASPIRIN 81 MG CHEWABLE TABLET PO (10:02)
[2021-11-24] MEDS: SACUBITRIL/VALSARTAN 24-26 MG TABLET 1 TAB PO (10:05)
[2021-11-24] MEDS: FUROSEMIDE INJ 40 MG/4 ML VIAL IV PUSH ×2 (10:05→16:52)
--- NOTE | 2021-11-24 10:49 | PM.PNCARD ---
Progress Note: A&P Assessment and Plan (1) Ischemic cardiomyopathy: Code(s): I25.5 - Ischemic cardiomyopathy Status: Acute Assessment and Plan: On medical therapy with metoprolol and recent addition of Entresto. BP stable. Ideally would like to add spironolactone but will hold off since renal function is worse today. This can be added as outpatient as well as SGLT2 inhibitor though I have concerns about his ability to afford Farxiga. Will need maintenance dose of furosemide upon discharge. Follow up as an outpatient in our office in a couple of weeks. (2) Atrial flutter: Code(s): I48.92 - Unspecified atrial flutter Status: Acute Assessment and Plan: Reasonably rate controlled. Unsure why he is on b.i.d dosing of Xoprol XL, should be shifted to once daily dosing. Continue apixaban 5mg b.i.d. (3) H/O aortic valve replacement: Code(s): Z95.2 - Presence of prosthetic heart valve Status: Acute Assessment and Plan: S/p bio AVR which is functioning normally according to echo obtained this hospitalization. Plan 71-year-old man with complex situation appears to have significant ischemic cardiomyopathy, normally functioning aortic valve bioprosthesis and likely chronic atrial flutter. He is on an appropriate medical regimen at this time. Because of his low ejection fraction I did transition him from lisinopril to Entresto. He has a reasonably controlled heart rate and of course is expected to be somewhat tachycardic because of his low ejection fraction. Will plan on offering him follow-up at our office after discharge from this hospitalization. He lives up in [facility]. Could also follow with a physician closer to that area([place]) should he choose to do so. Nader Hayden MD [facility] Subjective Date/time seen: 11/24/21 10:49 Cardiology follow up for atrial flutter, ischemic cardiomyopathy Feels well today. His only complaint is that he has some nausea. Review of Systems Constitutional: Constitutional: Reports no additional constitutional complaints Eyes: Eyes: Reports no additional eye complaints ENT: Reports system reviewed and no additional complaints, except as documented Cardiovascular: Cardiovascular: Reports no additional cardiovascular complaints and Reports dyspnea on exertion Respiratory: Respiratory: Reports dyspnea on exertion Gastrointestinal: Gastrointestinal: Reports no additional gastrointestinal complaints Musculoskeletal: Musculoskeletal: Reports myalgias and Reports stiffness Integumentary/Breasts: Skin/Breast: Reports system reviewed and no additional complaints, except as docu Endocrine: Endocrine: Reports no additional endocrine complaints Hematologic/Lymphatic: Hematologic/Lymphatic: Reports no additional hematologic/lymphatic complaints Allergic/Immunologic: Allergic/Immunologic: Reports no additional allergic/immunologic complaints Exam Const: General: comfortable and no acute distress Other: Elderly gentleman resting comfortably in bed no distress. HENMT: Mouth: Yes moist mucous membranes Eyes: Sclera: sclerae normal Pupils: Equal, round and reactive pupils present Neck: Neck: supple and no JVD Other: Carotid pulses are intact bilaterally Resp: Effort & Inspection: normal respiratory effort Auscultation: clear to auscultation bilaterally Cardio: Rhythm: abnormal rhythm irregularly irregular Heart sounds: Murmur heart sound present systolic GI: Auscultation: normal bowel sounds Skin: General skin exam: normal color Neuro: Cranial nerves: Yes Equal, round and reactive pupils present Other: Normal cognition Extrem: Other: Mild bipedal edema Objective Data Vital Signs Vital Signs: Vital Signs - 24 hr 11/23/21 12:00 11/23/21 14:00 11/23/21 16:00 Temperature 36.1 C L Pulse Rate 91 54 L 107 H Respiratory Rate 24 H Blood Pressure 124/74 Pulse Oximetry 95 Oxygen Delivery
--- NOTE | 2021-11-24 17:12 | PM.DS ---
DS: Admitting Diagnosis Discharge Date 11/24/21 Admitting Diagnosis Shortness of breath DS: Discharge Diagnosis Discharge Diagnosis (1) CHF exacerbation: Code(s): I50.9 - Heart failure, unspecified Status: Acute (2) H/O aortic valve replacement: Code(s): Z95.2 - Presence of prosthetic heart valve Status: Acute (3) Atrial flutter: Code(s): I48.92 - Unspecified atrial flutter Status: Acute (4) Ischemic cardiomyopathy: Code(s): I25.5 - Ischemic cardiomyopathy Status: Acute (5) Elevated troponin: Code(s): R77.8 - Other specified abnormalities of plasma proteins Status: Acute (6) Non-compliance: Code(s): Z91.19 - Patient's noncompliance with other medical treatment and regimen Status: Acute DS: Summary Hospital Course Reason for hospitalization: 71yo male with CAD, CHF, iCMP, and AVR here for shortness of breath and found to have CHF exacerbation. He has been out of his medications for 2 months prior to admission. Please see H&P for details. Hospital Course: Chest x-ray showing cardiomegaly with BNP of 13.6K. EKG shows sinus tachycardia with right bundle branch block and left posterior fascicular block. He had intermittent AFib/flutter. We resumed his Eliquis and metoprolol. Echocardiogram showed 4 chamber cardiac dilation with severe LV systolic dysfunction and EF of 20-25%. Diastolic function was indeterminate. He had normal appearing and normally functioning aortic valve bioprosthesis. He was felt patient had acute on chronic systolic CHF exacerbation. He started on IV diuretics. CBC was normal except for slightly low platelet count. Platelet count did normalize. His D-dimer was high at 3.5. This prompted a CTA of the chest which showed no pulmonary emboli, small right pleural effusion and cardiomegaly. Small amount of ascites in the upper abdomen noted. Venous Doppler was negative for DVT. Troponin was elevated to 0.142 before trending back down. Was felt this was related to the CHF exacerbation. Cardiology was involved in his care. TSH was normal. Cr mildly elevated and mostly flat. COVID negative. UDS negative. He did well. He remained on room air. His medications were adjusted. He overall did well and was able to be discharged home on 11/24/21. Status at Discharge Cognitive/behavioral status at discharge: Stable Time Spent with Patient Time attestation: Total time spent providing and/or coordinating discharge services:38 minutes Time spent: Greater than 30 minutes Exam Narrative: AF 97.2 105/95 78 18 98% ra Gen - NARD Chest - CTA bilaterally, nml RR CV - irregularly irregular. Tele showing AFib/flutter with controlled rate. Abd - Soft, NT/ND, Positive BS Ext - trace pedal edema Neuro - Alert and oriented. Nonfocal exam. Psych - Nml mood and affect Skin - Warm and dry DS: Data Data Completed and Pending Labs on day of discharge: Labs from last 24 hours 11/24/21 11/24/21 06:22 06:22 WBC 6.3 RBC 4.91 Hgb 14.7 Hct 46.7 MCV 95.1 MCH 29.9 MCHC 31.5 L RDW 14.3 Plt Count 151 MPV 12.7 H Sodium 136 L Potassium 4.0 Chloride 97 L Carbon Dioxide 32 H Anion Gap 7 L BUN 37 H Creatinine 1.70 H Estim Creat Clear Calc 41 Estimated GFR 40 L Glucose 117 H Calcium 8.3 L Total Bilirubin 0.5 AST 46 ALT 38 Alkaline Phosphatase 147 H Troponin I 0.100 H* Total Protein 6.0 L Albumin 3.1 L Discharge Plan Discharge Attending physician on discharge: Sagar Pedroza Consulting providers: Tatyana Nava Discharging Clinician: Sagar Pedroza Anticipated Discharge Date/Time: 11/24/21 17:26 Patient Disposition: Home, Self-Care Activity: as tolerated Diet: heart healthy Discharge Instructions: Please avoid large gathering, wear face coverings in public and practice social distance. Take precautions to avoid falls. Rise slow
== END 2021-11-24 17:48 | disposition home or self-care (01) | DRG 291 ==
LOC: ANHIMU 11-22 10:31 → ANH3MEDSUR 11-23 09:21 → ANHIMU 11-26 18:44
PROVIDERS: Nurse Practitioner; Nurse Practitioner Adult Health; Admitting Provider Student in an Organized Health Care Education/Training Program; Visit Provider Internal Medicine
DX: I11.0 Hypertensive heart disease with heart failure (principal); I50.23 Acute on chronic systolic (congestive) heart failure; I24.8 Other forms of acute ischemic heart disease; I48.19 Other persistent atrial fibrillation; I48.92 Unspecified atrial flutter; I25.10 Atherosclerotic heart disease of native coronary artery without angina pectoris; I25.5 Ischemic cardiomyopathy; E78.5 Hyperlipidemia, unspecified; R29.6 Repeated falls; R46.89 Other symptoms and signs involving appearance and behavior; Z91.14 Patient's other noncompliance with medication regimen; Z95.2 Presence of prosthetic heart valve; Z95.1 Presence of aortocoronary bypass graft; Z79.01 Long term (current) use of anticoagulants; Z95.820 Peripheral vascular angioplasty status with implants and grafts; Z79.82 Long term (current) use of aspirin; I25.2 Old myocardial infarction
CPT/HCPCS: 36415; 71275; 80053; 83735; 84443; 84484; 85025; 85027; 85610; 85730; 93005; 93306; 94640; 96365; 96366; 96375; 96376; 97116; 97161; 97165; 97530; A9270; G0378; J1940; J2405; Q9967